=== PATIENT | female | born 1955 | race Two or more races ===

== ENCOUNTER 2019-07-19 03:02 | Emergency (ER) | payer OTHER ==
[~2019-07-19] VITALS: Ht 149.9 cm; Wt 48.5 kg
[~2019-07-19 03:02] MED LIST: ATENOLOL; CRESTOR5 MG PO; DIAZEPAM10 MG PO; METFORMIN HYDRO25 G1; METOPROLOL ER-1 EAC1; SYNTHROID50 MCG
[2019-07-19] MEDS ORDERED: DICLOFENAC-MIS1 EAC3 (03:09)
== END 2019-07-19 10:04 | disposition home or self-care (01) ==
LOC: ER 03:02
DX: K80.20 Calculus of gallbladder without cholecystitis without obstruction (principal); R10.32 Left lower quadrant pain

== ENCOUNTER 2019-07-26 09:32 | Outpatient (CLI) | payer OTHER ==
[~2019-07-26 09:32] MED LIST changes: +DICLOFENAC-MIS1 EAC3
== END 2019-07-26 11:00 | disposition home or self-care (01) ==
LOC: SONOGRAMA 09:32
DX: K80.20 Calculus of gallbladder without cholecystitis without obstruction (principal)

== ENCOUNTER 2019-07-30 01:21 | Inpatient (IN) | payer OTHER ==
[~2019-07-30] VITALS: Ht 149.9 cm; Wt 44.5 kg
[2019-08-01] MEDS ORDERED: VYTORIN 10-201 EACH PO (16:57)
[2019-08-01] MEDS ORDERED: TOPROL XL50 M1 PO (16:57)
[2019-08-01] MEDS ORDERED: LEVO-T25 MCG PO (16:57)
[2019-08-01] MEDS ORDERED: METFORMIN HCL500 M4 PO (16:58)
[2019-08-02] MEDS ORDERED: NEURONTIN600 M1 PO (12:56)
[2019-08-02] MEDS ORDERED: PERCOCET 5-3251 EACH PO (12:56)
[2019-08-02] MEDS ORDERED: COLACE100 MG PO (12:57)
== END 2019-08-02 13:40 | disposition home or self-care (01) | DRG 419 ==
LOC: ER 01:21 → SEC-K 12:47 → MEDI 12:47 → MEDJ 18:06 → MEDI 18:06
PROVIDERS: ADMIT Surgery; ATTEND Surgery
PROC: 0DTJ4ZZ Resection of Appendix, Percutaneous Endoscopic Approach (ICD-10-PCS; 2019-07-31)
PROC: 0DBH4ZZ Excision of Cecum, Percutaneous Endoscopic Approach (ICD-10-PCS; 2019-07-31)
PROC: BF13YZZ Fluoroscopy of Gallbladder and Bile Ducts using Other Contrast (ICD-10-PCS; 2019-07-31)
PROC: 0FT44ZZ Resection of Gallbladder, Percutaneous Endoscopic Approach (ICD-10-PCS; principal; 2019-07-31 15:45)
DX: K81.0 Acute cholecystitis (principal); K38.8 Other specified diseases of appendix; K63.89 Other specified diseases of intestine

== ENCOUNTER 2019-09-13 06:05 | Day surgery (SDC) | payer OTHER ==
[~2019-09-13 06:05] MED LIST changes: +COLACE100 MG PO; +LEVO-T25 MCG PO; +METFORMIN HCL500 M4 PO; +NEURONTIN600 M1 PO; +PERCOCET 5-3251 EACH PO; +TOPROL XL50 M1 PO; +VYTORIN 10-201 EACH PO
== END 2019-09-13 09:30 | disposition home or self-care (01) ==
LOC: AMB-ENDOS 06:05
PROVIDERS: ATTEND Colon & Rectal Surgery
DX: D12.1 Benign neoplasm of appendix (principal); K64.0 First degree hemorrhoids; Z20.828 Contact with and (suspected) exposure to other viral communicable diseases

== ENCOUNTER 2021-02-01 20:51 | Emergency (ER) | payer OTHER ==
[~2021-02-01] VITALS: Ht 149.9 cm; Wt 50.3 kg
== END 2021-02-01 22:06 | disposition home or self-care (01) ==
LOC: ER 20:51
DX: R00.2 Palpitations (principal)